=== PATIENT | male | born 1960 | race Caucasian/White ===

== ENCOUNTER 2017-11-23 08:23 | Day surgery (SDC) | payer BC ==
[~2017-11-23] VITALS: Ht 175.3 cm; Wt 98.9 kg
[~2017-11-23 08:23] MED LIST: IBUP200 PO; OMEP20ER PO; Pepcid40 MG PO; Prilosec Otc20 MG PO; ZESTORETIC 20-121 EA PO
== END 2017-11-23 10:18 | disposition home or self-care (01) ==
LOC: ORSCMMR 08:23
PROVIDERS: Internal Medicine Gastroenterology
PROC: 0DB48ZX Excision of Esophagogastric Junction, Via Natural or Artificial Opening Endoscopic, Diagnostic (ICD-10-PCS; principal; 2017-11-23 09:30)
PROC: 0D758ZZ Dilation of Esophagus, Via Natural or Artificial Opening Endoscopic (ICD-10-PCS; principal; 2017-11-23 09:30)
DX: R13.14 Dysphagia, pharyngoesophageal phase (principal); K21.0 Gastro-esophageal reflux disease with esophagitis; I10 Essential (primary) hypertension
CPT/HCPCS: 88305; C1726; J7120

== ENCOUNTER 2018-12-24 15:08 | Emergency (ER) | payer OTHER, BC ==
[~2018-12-24] VITALS: Ht 172.7 cm; Wt 96.6 kg
[2018-12-24] MEDS ORDERED: IBUP800 PO (15:25)
[2018-12-24] MEDS ORDERED: LOSARTAN POTAS100 MG PO (15:26)
[2018-12-24] MEDS ORDERED: CEPH500 PO (17:15)
== END 2018-12-24 17:28 | disposition home or self-care (01) ==
LOC: ER 15:08
DX: S66.323A Laceration of extensor muscle, fascia and tendon of left middle finger at wrist and hand level, initial encounter (principal); S61.215A Laceration without foreign body of left ring finger without damage to nail, initial encounter; S61.217A Laceration without foreign body of left little finger without damage to nail, initial encounter; W26.8XXA Contact with other sharp object(s), not elsewhere classified, initial encounter; Y99.0 Civilian activity done for income or pay; Z79.899 Other long term (current) drug therapy; I10 Essential (primary) hypertension; F17.220 Nicotine dependence, chewing tobacco, uncomplicated
CPT/HCPCS: 12001; 73120; 90471; 90714; 96365; 99283-25; J0295

== ENCOUNTER 2021-11-05 08:04 | Day surgery (SDC) | payer BC ==
[~2021-11-05] VITALS: Ht 175.3 cm; Wt 89.1 kg
[~2021-11-05 08:04] MED LIST changes: +CEPH500 PO; +HYDCHL25 PO; +IBUP800 PO; +LOSARTAN POTAS100 MG PO; +MIRT15ST PO
--- NOTE | 2021-11-05 09:03 | NUR ---
Ambulatory in Day Surgery History, Chart, Medications and Allergies reviewed before start of procedure.Patient confirms NPO status and agrees with scheduled surgery.
--- NOTE | 2021-11-05 09:43 | NUR ---
11/05/21 0943 Jean Gillespie History, Chart, Medications and Allergies reviewed before start of procedure. Patient confirms NPO status and agrees with scheduled surgery. 3-LEAD EKG REVIEWED WITH PHYSICIAN PRIOR TO START OF PROCEDURE. MONITOR INTACT WITH CONTINUOUS PULSE OXIMETRY AND INTERMITTENT BP. PATIENT DETERMINED TO BE ASA APPROPRIATE FOR PROPOFOL SEDATION PRIOR TO START OF PROCEDURE BY DR. URRUTIA. Bite Block Placed, REMOVED AFTER PROCEDURE. HURRICAINE SPRAY TO OROPHARYX.
--- NOTE | 2021-11-05 10:28 | NUR ---
Patient up to Ambulate independently. Gait steady. Discharge instructions reviewed with patient. Patient verbalizes understanding. Copy given to patient to take home.PT WILL BE Discharged via wheelchair to private car for ride home.
== END 2021-11-05 23:40 | disposition home or self-care (01) ==
LOC: ORSCMMR 08:04 → ORD 09:00 → ORSCMMR 09:00
PROVIDERS: Internal Medicine Gastroenterology
PROC: 0DB48ZX Excision of Esophagogastric Junction, Via Natural or Artificial Opening Endoscopic, Diagnostic (ICD-10-PCS; principal; 2021-11-05 09:00)
PROC: 0DB58ZX Excision of Esophagus, Via Natural or Artificial Opening Endoscopic, Diagnostic (ICD-10-PCS; principal; 2021-11-05 09:00)
PROC: 0D758ZZ Dilation of Esophagus, Via Natural or Artificial Opening Endoscopic (ICD-10-PCS; principal; 2021-11-05 09:00)
DX: R13.14 Dysphagia, pharyngoesophageal phase (principal); K21.9 Gastro-esophageal reflux disease without esophagitis; F41.8 Other specified anxiety disorders; K22.2 Esophageal obstruction; I10 Essential (primary) hypertension; Z79.899 Other long term (current) drug therapy
CPT/HCPCS: 88305; A9270; C1726; J2250; J2704; J7120

== ENCOUNTER 2023-09-16 13:34 | Emergency (ER) | payer BC, OTHER ==
[~2023-09-16] VITALS: Ht 175.3 cm; Wt 95.2 kg
[2023-09-16] MEDS ORDERED: AMLODIPINE BESY10 MG PO (16:04)
[2023-09-16] MEDS ORDERED: ATOR40TA PO (16:05)
[2023-09-16 20:38] VITALS: BP 178/86
== END 2023-09-16 21:02 | disposition short-term general hospital (02) ==
LOC: ER 13:34
DX: T18.128A Food in esophagus causing other injury, initial encounter (principal); Z79.899 Other long term (current) drug therapy; I10 Essential (primary) hypertension
CPT/HCPCS: 99284; J1610

== ENCOUNTER → 2025-01-15 | Outpatient (CLI) | payer BC, OTHER ==
[~2025-01-15] MED LIST changes: +AMLODIPINE BESY10 MG PO; +ATOR40TA PO
[2025-01-15 13:15] LABS: BASOPHILS ABSOLUTE AUTO 0.08 K/mm3 (0.00-0.23); BASOPHILS PERCENT AUTO 1 % (0-2); EOSINOPHILS ABSOLUTE AUTO 0.29 K/mm3 (0.00-0.68); EOSINOPHILS PERCENT AUTO 4 % (0-6); Hematocrit 44.6 % (37.0-53.0); Hemoglobin 15.1 g/dL (13.5-17.5); IMMATURE GRAN ABSOLUTE AUTO 0.01 K/mm3 (0.00-0.10); IMMATURE GRAN PERCENT AUTO 0 % (0-1); LYMPHOCYTES ABSOLUTE AUTO 2.33 K/mm3 (0.84-5.20); LYMPHOCYTES PERCENT AUTO 28 % (21-46); MONOCYTES ABSOLUTE AUTO 0.98 K/mm3 (0.16-1.47); MONOCYTES PERCENT AUTO 12 % (4-13); Mean Corpuscular HGB 29.5 pg (26.0-34.0); Mean Corpuscular HGB Conc 33.9 g/dL (31.5-36.5); Mean Corpuscular Volume 87 fL (80-100); Mean Platelet Volume 11.1 fL (9.1-12.4); NEUTROPHILS ABSOLUTE AUTO 4.51 K/mm3 (1.96-9.15); NEUTROPHILS PERCENT AUTO 55 % (41-73); Platelet Count 227 K/mm3 (150-400); RDW Coefficient Variation 13.8 % (11.7-14.2); RDW Standard Deviation 43.8 fL (35.1-46.3); Red Blood Cell Count 5.11 M/mm3 (4.30-5.90)
[2025-01-15 13:45] LABS: Prostate Specific Antigen 0.322 ng/mL (0.000-4.000)
[2025-01-15 13:46] LABS: Alanine Aminotransfer (ALT/SGP 98 U/L (12-78); Albumin, Blood 3.8 g/dL (3.4-5.0); Albumin/Globulin Ratio 0.8 (0.8-1.8); Alk Phos 95 U/L (50-136); Anion Gap 10 mmol/L (3-11); Aspartate Aminotrans (AST/SGOT 91 U/L (12-37); Bilirubin, Direct 0.2 mg/dL (0.0-0.3); Bilirubin, Indirect 0.2 mg/dL (0.1-0.7); Bilirubin, Total 0.4 mg/dL (0.1-1.0); Blood Urea Nitrogen 14 mg/dL (8-24); Bun/Creatinine Ratio 19.2 (12.0-20.0); CHOL/HDL RATIO 4.8; CO2, Blood 25 mmol/L (21-32); Calcium, Blood 9.1 mg/dL (8.5-10.1); Chloride, Blood 103 mmol/L (98-108); Cholesterol 173 mg/dL (50-200); Creatinine, Blood 0.73 mg/dL (0.60-1.20); Globulin, Blood 4.9 g/dL (2.2-4.0); Glomerular Filtration Rate 102 (60-); Glucose, Blood 143 mg/dL (70-99); HDL Cholesterol 36 mg/dL (>39); LDL/HDL RATIO 2.9; Low Density Lipoprotein Chol 106 mg/dL (0-110); Potassium, Blood 4.4 mmol/L (3.5-5.5); Sodium, Blood 134 mmol/L (136-145); Total Protein, Blood 8.7 g/dL (6.4-8.2); Triglycerides 156 mg/dL (30-160); Very Low Density Lipoprot Chol 31 mg/dL (6-32)
[2025-01-17 10:38] LABS: HIV 1,2 COMBO ANTIGEN/ANTIBODY Negative (Negative)
[2025-01-17 15:04] LABS: HEPATITIS C AB CIA INTERP Negative (Negative); HEPATITIS C ANTIBODY CIA INDEX 0.15 IV
== END ==
LOC: LAB SHORT 08:30 → LAB 08:30
PROVIDERS: Nurse Practitioner Family
DX: Z12.5 Encounter for screening for malignant neoplasm of prostate (principal); Z11.59 Encounter for screening for other viral diseases; Z11.4 Encounter for screening for human immunodeficiency virus [HIV]; I10 Essential (primary) hypertension
CPT/HCPCS: 80053; 80061; 82248; 85025; 86803; 87389; G0103